=== PATIENT | male | born 1970 | race Caucasian/White ===

== ENCOUNTER 2017-07-13 20:10 | Emergency (ER) | payer OTHER ==
[2017-07-13] MEDS: 0.9 % SODIUM CHLORIDE 1,000 ML IV ONE ×2 (20:10→20:45)
--- NOTE | 2017-07-13 20:31 | ED Physician Documentation ---
General Adult - HISTORIAN Historian: patient - HPI Stated Complaint: Chills/decreased urine output with darkening/no appetite Chief Complaint: General Adult Additional Information: Body aches, decreased appetite, dark urine for 2-3 days. Modifying Factors: Has been drinking Gatorade, but has only urinated a couple of times today. - ROS CONST: denies: fever EYES/ENT: denies: sore throat GI/: denies: abdominal pain, vomiting, nausea, diarrhea - PAST HX Past History: none Other History: none Surgeries/Procedures: other (vasectomy) Allergies/Adverse Reactions: Allergies Allergy/AdvReac Type Severity Reaction Status Date / Time Penicillins AdvReac Unknown Rash Verified 07/13/17 20:25 Home Medications: Ambulatory Orders Medication Instructions Recorded NK [NK] 07/13/17 - SOCIAL HX Smoking History: non-smoker - FAMILY HX Family History: No - VITAL SIGNS Vital Signs: Vital Signs Temp Pulse Resp BP Pulse Ox 98.3 F 103 H 18 126/85 99 07/13/17 20:12 07/13/17 20:12 07/13/17 20:12 07/13/17 20:12 07/13/17 20:12 - REVIEWED ASSESSMENTS Nursing Assessment Reviewed: Yes Vitals Reviewed: Yes ED Results Lab/Radiology - Orders Orders: ED Orders Category Date Time Status Place IV Lock 1T Care 07/13/17 20:28 Ordered CBC/PLATELET/DIFF Routine Lab 07/13/17 Ordered CMP Routine Lab 07/13/17 Ordered INFLUENZA A&B Stat Lab 07/13/17 Uncollected URINALYSIS Routine Lab 07/13/17 Ordered NORMAL SALINE @ 1000 MLS/HR ( 1000ml BOLUS) Med 07/13/17 20:28 Ordered 0.9 % Sodium Chloride [Normal Saline] 1,000 ml IV Q1H General Adult Physical Exam - PHYSICAL EXAM GENERAL APPEARANCE: moderate distress (appears tired, ill) EENT: eye inspection normal, pharynx normal, TM's nml, dry mucous membranes NECK: normal inspection, supple, other (non tender) RESPIRATORY: no resp distress, breath sounds normal CVS: reg rate & rhythm, heart sounds normal ABDOMEN: soft, normal bowel sounds, no distension, non-tender BACK: other (erect posture) SKIN: warm/dry, pallor EXTREMITIES: normal range of motion (gait and stance), no evidence of injury NEURO: CN's nml as tested, motor nml, sensation nml, cognition normal Discharge Clincal Impression: Dehydration Referrals: Primary Doctor,No [Primary Care Provider] - 2 Days Additional Instructions: Return to the ER if you cannot urinate for 6-8 hours. Drink plenty of water. Your lab results were fine. Decision to Admit: NO Decision Time: 21:50
[2017-07-13 21:00] LABS: BASOPHILS % 0.6 (0.0-1.5); EOSINOPHILS % 2.5 % (0.0-6.8); MEAN CORPUSCULAR HEMOGLOBIN 30.3 pg (28.0-34.0); MEAN CORPUSCULAR VOLUME 85.9 fl (80.0-100.0); MONOCYTES % 5.6 % (0.0-11.0); NEUTROPHILS # 7.7 # k/uL (1.4-7.7)
[2017-07-13 21:09] LABS: eGFR (African) > 60; eGFR (Non-African) > 60
[2017-07-13] MEDS ORDERED: 0.9 % SODIUM CHLORIDE 1,000 ML IV ONE (21:25)
[2017-07-13 22:44] VITALS: BP 107/62
[2017-07-14 03:44] LABS: APPEARANCE,URINE CLEAR (CLEAR); COLOR,URINE AMBER (YELLOW); OCCULT BLOOD,URINE 2+ (NEGATIVE); UROBILINOGEN URINE 0.2 Eu (0.2-1.0)
== END 2017-07-13 22:05 | disposition home or self-care (01) ==
LOC: ED 20:10
DX: E86.0 Dehydration (principal)
CPT/HCPCS: 80053; 81002; 85025; 87400; 96360; 99282; J7030; S1016